=== PATIENT | male | born 1975 | race Caucasian/White ===

== ENCOUNTER 2019-05-05 19:51 | Emergency (ER) | payer OTHER, SELFPAY ==
[2019-05-05 19:53] VITALS: BP 136/74; PULSE 48; RESP 17; TEMP 36.6; O2SAT 98; BMI 28.0
--- NOTE | 2019-05-05 19:54 | EKG12_ITS ---
Test Reason : CP Blood Pressure : / mmHG Vent. Rate : 049 BPM Atrial Rate : 049 BPM P-R Int : 164 ms QRS Dur : 098 ms QT Int : 448 ms P-R-T Axes : 028 076 033 degrees QTc Int : 404 ms Sinus bradycardia Otherwise normal ECG Confirmed by ALLY MANCIA, JAMEEL ([id number]), design editor KRYSTAL CLARK ([id number]) on 05/10/2019 2:32:01 PM Referred By: CHRISTINA Confirmed By:SAGE CANALES MD
--- NOTE | 2019-05-05 20:06 | RAD_ITS ---
STUDY: X-RAY CHEST REASON FOR EXAM: Male, 44 years old. chest pain TECHNIQUE: Single AP portable view of the chest. COMPARISON: None. FINDINGS: The lungs are clear and expanded. There is no demonstrated pleural abnormality. Normal size heart. Normal mediastinum and julian. Normal visualized pulmonary arteries. Normal visualized aortic arch and descending thoracic aorta. Normal visualized thoracic spine. Normal visualized ribs, clavicles, and shoulders. There is no demonstrated abnormality of the visualized soft tissue structures of the upper abdomen. RAD/Chest 1 View (Portable) IMPRESSION: Normal x-ray examination of the chest. Electronically Signed: Jonny Shukla MD at 20:51 EST Tel , Service support ,
[2019-05-05 20:17] LABS: Absolute Lymphocyte Count 2.24 X10^3/uL (0.83-4.51); Absolute Neutrophil Count 2.5 X10^3/uL (2.0-7.7); Basophil# 0.03 X10^3/uL; Basophil% 0.5 % (0-1); Eosinophil# 0.16 X10^3/uL; Eosinophils% 2.9 % (0-5); Hematocrit 39.6 % (40-54); Hemoglobin 13.5 g/dL (13.0-16.5); Lymphocyte # 2.24 X10^3/ul (4.0); Lymphocyte % 40.2 % (19-41); Mean Corp Hgb Conc 34.1 g/dL (32-36); Mean Corpuscular Hgb 31.3 pg (27.0-32.0); Mean Corpuscular Volume 91.7 fL (80-94); Mean Platelet Vol. 9.1 fl (6.2-12.0); Monocyte# 0.65 X10^3/uL; Monocyte% 11.7 % (0-10); NRBC Flagged by Analyzer 0 % (0-5); Neutrophil # 2.48 X10^3/uL (2.7-7.7); Neutrophil % 44.5 % (47-70); Platelet Count 212 K/mm3 (150-450); RBC Distribution Width CV 12.6 % (11.6-14.6); RBC Distribution Width SD 41.7 fl (35.1-43.9); Red Blood Count 4.32 M/mm3 (4.6-6.2); White Blood Count 5.6 K/mm3 (4.4-11.0)
[2019-05-05 20:21] LABS: International Normalized Ratio 1.1; Prothrombin Time (Protime)PT. 13.7 SECONDS (11.7-14.9)
[2019-05-05 20:33] LABS: Anion Gap 6 (5-15); BUN 20 mg/dL (7-18); BUN/Creat Ratio 19.4 RATIO (10-20); Chloride 104 mmol/L (98-107); Creatinine, Serum 1.03 mg/dL (0.70-1.30); EST Glomerular Filtration Rate 83 mL/min (>60); Est Glom Filt Rate - Afr Amer 100 mL/min (>60); Estimated Creatinine Clearance 90.57 ml/min; Glucose 123 mg/dL (74-106); Potassium 3.8 mmol/L (3.5-5.1); Sodium Level 138 mmol/L (136-145)
[2019-05-05 21:11] VITALS: BP 130/77; PULSE 55; RESP 13; O2SAT 96
--- NOTE | 2019-05-05 21:13 | EKG12_ITS ---
Test Reason : REPEAT Blood Pressure : / mmHG Vent. Rate : 045 BPM Atrial Rate : 045 BPM P-R Int : 158 ms QRS Dur : 100 ms QT Int : 450 ms P-R-T Axes : 038 077 035 degrees QTc Int : 389 ms Sinus bradycardia Otherwise normal ECG Confirmed by ALLY MANCIA, JAMEEL ([id number]), senior technical editor KRYSTAL CLARK ([id number]) on 05/10/2019 2:33:25 PM Referred By: CHRISTINA Confirmed By:SAGE CANALES MD
--- NOTE | 2019-05-05 21:18 | ED.VISSUMM ---
- ER Visit Summary Date of Service: 05/05/19 Chief Complaint: Lower chest pain History of Present Illness: The patient is a 44 M no significant past medical history. Prior appendectomy. Does not see a physician. Is on no medications. Patient works out frequently. He denies any recent exertional dyspnea or exertional chest pain. States last night he had a hamburger for dinner around 9:00 he started having lower sternal chest discomfort. No nausea. No shortness of breath. Nothing particular makes the pain better or worse. He has had no exertional symptoms. Today he went to the gym did both cardio and weight training and said he had no problems. He denies any history of DVT DVT or PE had no recent travel, surgery or immobilization. Denies any leg pain or swelling. No hemoptysis. Is not pleuritic. He is able to swallow he has had no choking. Physical Examination: White male no acute distress. Vital signs are stable afebrile. Pulse ox 90%. H EENT exam unremarkable. Posterior pharynx normal. Neck nontender no lymphadenopathy. Lungs clear to auscultation bilaterally. Heart regular rhythm rate about 50 no murmur. Chest wall nontender. No ecchymosis or bruising no subcu air crepitance no reproducible pain. Abdomen soft and nontender no epigastric tenderness. Right upper right lower quadrant unremarkable. Extremities moves all 4 neurovascular intact. Calves nontender without edema or cords. Back nontender. Neurologic exam normal. Test Results: Patient underwent a cardiac work-up. Chest x-ray portable 1 view read both by myself the radiologist shows no acute abnormality. Normal cardiac silhouette and mediastinum. EKG sinus bradycardia rate of 49 with no acute signs of ID or ischemia. No old EKG available. CBC normal. Chemistries normal normal creatinine gap. PT/INR and troponin all normal. Repeat EKG done at 2117 again shows sinus bradycardia rate of 45 with no acute signs of ID or ischemia. There is an inverted T waves in V1 which was seen on the prior. Second troponin again is normal. Emergency Department Course and Treatment: Patient with no significant cardiac risk factors. No family history. Non-smoker. Healthy gentleman that works out frequently without exertional chest pain or exertional shortness of breath. Has a negative cardiac work-up in 2- EKGs. Given p.o. Protonix and a GI cocktail. Treatment Plan: Multiple repeat exams patient is doing well. But no change in his pain. This is not exertional pain. Nor is he had any exertional dyspnea. Light of his negative work-up will be discharged home with outpatient follow-up and further evaluation Disposition: Discharge Impression: Acute atypical nonexertional chest pain of uncertain etiology This note was generated with [employer] dictation software. It may contain incorrect words, spelling, and punctuation that were not noted in review of the chart prior to signing ED Disposition - Plan for ED Patient: Referrals: NOT,DEFINED [NON-STAFF] -
[2019-05-05] MEDS: Mag Hydrox/Al Hydrox/Simeth 30 ML UDC PO (21:26)
[2019-05-05] MEDS: Pantoprazole Sodium 40 MG Tablet PO (21:27)
[2019-05-05 22:12] VITALS: BP 135/80; PULSE 47; RESP 15; O2SAT 96
--- NOTE | 2019-05-05 23:40 | ED.DEP ---
ED Disposition - Plan for ED Patient: Disposition: Home or Assisted Living Instructions: CHEST PAIN, Uncertain Cause Referrals: Sae Platt MD [STAFF PHYSICIAN] - As soon as possible Additional Instructions: Turn if feeling worse. Both your EKGs and all your lab work tonight was unremarkable. I do not have a specific cause for your pain. Follow-up with a local primary care physician. Return to the emergency department if you are feeling worse.
[2019-05-05 23:46] VITALS: BP 136/73; PULSE 45; RESP 15; O2SAT 97
[2019-05-05 23:47] VITALS: BP 136/73; PULSE 45; RESP 15; O2SAT 97
== END 2019-05-05 23:48 | disposition home or self-care (01) ==
PROVIDERS: Emergency Provider Emergency Medicine
DX: R07.89 Other chest pain (principal)
CPT/HCPCS: 71045; 80048; 84484; 85025; 85610; 93005; 99285; A4216